=== PATIENT | female | born 1985 | race Caucasian/White ===

== ENCOUNTER 2017-08-09 08:59 | Emergency (ER) | payer OTHER ==
[~2017-08-09] VITALS: Ht 167.6 cm; Wt 70.8 kg
[2017-08-09] MEDS ORDERED: PRENATABS FA T1 EACH PO (09:38)
[2017-08-09] MEDS ORDERED: TRAZODONE HCL150 MG PO (09:38)
[2017-08-09] MEDS ORDERED: OMEPRAZOLE20 MG PO (09:38)
[2017-08-09] MEDS ORDERED: DITROPAN XL5 MG PO (09:38)
[2017-08-09] MEDS ORDERED: CYCLOBENZAPRINE10 MG PO (10:49)
[2017-08-09] MEDS ORDERED: NAPROSYN500 MG PO (10:49)
[2017-08-09] MEDS ORDERED: NORCO 5-325 TA1 EACH PO (10:49)
== END 2017-08-09 11:09 | disposition home or self-care (01) ==
LOC: ED 08:59
DX: M62.830 Muscle spasm of back (principal); F17.200 Nicotine dependence, unspecified, uncomplicated; Z88.5 Allergy status to narcotic agent; Z88.8 Allergy status to other drugs, medicaments and biological substances; Z79.899 Other long term (current) drug therapy; Z85.41 Personal history of malignant neoplasm of cervix uteri
CPT/HCPCS: 72100; 96372; 99283; J1885

== ENCOUNTER 2018-04-02 12:14 | Emergency (ER) | payer OTHER ==
[~2018-04-02] VITALS: Ht 167.6 cm; Wt 70.8 kg
--- OUTSIDE RECORDS SUMMARY | ~2018-04-02 | XMS | Clinical Summary ---
Demographics + + + | Address | [address] | | | [place] [address] | + + + | Home Phone | | + + + | Preferred Language | Unknown | + + + | Marital Status | Unknown | + + + | Catholic Affiliation | Unknown | + + + | Race | Unknown | + + + | Ethnic Group | Unknown | + + + Author + + + | Author | [facility] | + + + | Organization | [facility] | + + + | Address | Unknown | + + + | Phone | Unavailable | + + + Care Team Providers + +------+ + | Care Multi Site Leasing Consultant Name | Role | Phone | + +------+ + | Maryjane OlivaP | PP | | + +------+ + Source Comments [facility] is fully live on both [facility] and [facility] InPatient.[facility] Allergies Not on File Current Medications Not on file Active Problems Not on file Social History + +-------+ +--------+------+ | Tobacco Use | Types | Packs/Day | Years | Date | | | | | Used | | + +-------+ +--------+------+ | Never Assessed | | | | | + +-------+ +--------+------+ + + + | Sex Assigned at | Date Recorded | | | | + + + | Not on file | | + + + Plan of Treatment + + + + + | Health Maintenance | Due Date | Last Done | Comments | + + + + + | Influenza (Flu) | | | | | vaccination (#1) | 8 | | | + + + + + Results Not on filefrom Last 3 Months"
--- OUTSIDE RECORDS SUMMARY | ~2018-04-02 | XMS | Clinical Summary ---
Demographics + + + | Address | [address] | | | [place] [address] | + + + | Home Phone | | + + + | Preferred Language | Unknown | + + + | Marital Status | Unknown | + + + | Christian Affiliation | Unknown | + + + | Race | Unknown | + + + | Ethnic Group | Unknown | + + + Author + + + | Author | [facility] | + + + | Organization | [facility] | + + + | Address | Unknown | + + + | Phone | Unavailable | + + + Care Team Providers + +------+ + | Care Back End Engineer Name | Role | Phone | + +------+ + | Maryjane OlivaP | PP | | + +------+ + Source Comments [facility] is fully live on both [facility] Amb[facility] and [facility] InPatient.[facility] Allergies Not on File Current Medications Not [...]
--- OUTSIDE RECORDS SUMMARY | ~2018-04-02 | XMS | Clinical Summary ---
Demographics + + + | Address | [address] | | | [place] [address] | + + + | Home Phone | | + + + | Preferred Language | Unknown | + + + | Marital Status | Unknown | + + + | Sikhism Affiliation | Unknown | + + + | Race | Unknown | + + + | Ethnic Group | Unknown | + + + Author + + + | Author | [facility] | + + + | Organization | [facility] [employer] | + + + | Address | Unknown | + + + | Phone | Unavailable | + + + Care Team Providers + +------+ + | Care Car Washer Name | Role | Phone | + +------+ + PP | Unavailable | + +------+ + Allergies Not on File Current Medications Not [...] | + + + + + | Vaccine: | | | | | Dtap/Tdap/Td (1 - | 4 | | | | Tdap) | | | | + + + + + | Cervical Cancer | | | | | Screening (Pap) | 5 | | | + + + + + | Vaccine: Influenza | | | | | (#1) | 8 | | | + + + + + Results Not on filefrom Last 3 Months Insurance + +--------+ +------+-------+ + | Payer | Benefi | Subscriber | Type | Phone | Address | | | t Plan | ID | | | | | | / | | | | | | | Group | | | | | + +--------+ +------+-------+ + | MEDICAID | [employer] | [id number] | | | [address] | | | [place] | | | | [place] | | | [place] | | | | [address] | | | [employer] | | | | | + +--------+ +------+-------+ + + +--------+ +--------+ + + | Guarantor Name | Accoun | Relation to | Date | Phone | Billing Address | | | t Type | Patient | of | | | | | | | | | | + +--------+ +--------+ + + | MIRACLE HOLLEY | Person | Self [birth year] | Home: | [address] | | | al/Fam | | 1985 | [phone] | [place] [id number] | | | [place] | | | [phone] | | + +--------+ +--------+ + +"
--- OUTSIDE RECORDS SUMMARY | ~2018-04-02 | XMS | Clinical Summary ---
Demographics + + + | Address | [address] | | | [place] [address] | + + + | Home Phone | | + + + | Preferred Language | Unknown | + + + | Marital Status | Unknown | + + + | Restorationist Affiliation | Unknown | + + + | Race | Unknown | + + + | Ethnic Group | Unknown | + + + Author + + + | Author | [facility] | + + + | Organization | [facility] [employer] [facility] | + + + | Address | Unknown | + + + | Phone | Unavailable | + + + Care Team Providers + +------+ + | Care Valuer Name | Role | Phone | + [...] +------+-------+ + | MEDICAID | [employer] | [id number] | | | [address] | | | N | | | | [place] | | | [place] | | | | [phone] | | | [employer] | | | | | + +--------+ [...] | 1985 | [phone] | [place] [address] | | | [place] | | | [phone] | | + +--------+ +--------+ + +"
[~2018-04-02 12:14] MED LIST: CYCLOBENZAPRINE10 MG PO; DITROPAN XL5 MG PO; NAPROSYN500 MG PO; NORCO 5-325 TA1 EACH PO; OMEPRAZOLE20 MG PO; PRENATABS FA T1 EACH PO; TRAZODONE HCL150 MG PO
[2018-04-02] MEDS ORDERED: METHYLPREDNISOLO4 M1 PO (12:47)
[2018-04-02] MEDS ORDERED: ZITHROMAX250 MG PO (12:47)
[2018-04-02] MEDS ORDERED: VENTOLIN HFA18 GM INH (12:47)
== END 2018-04-02 13:02 | disposition home or self-care (01) ==
LOC: ED 12:14
DX: J40 Bronchitis, not specified as acute or chronic (principal); F17.200 Nicotine dependence, unspecified, uncomplicated; Z88.5 Allergy status to narcotic agent; Z88.8 Allergy status to other drugs, medicaments and biological substances; Z79.899 Other long term (current) drug therapy
CPT/HCPCS: 99283

== ENCOUNTER 2021-04-26 16:04 | Emergency (ER) | payer OTHER ==
[~2021-04-26] VITALS: Ht 167.6 cm; Wt 80.7 kg
[~2021-04-26 16:04] MED LIST changes: +METHYLPREDNISOLO4 M1 PO; +VENTOLIN HFA18 GM INH; +ZITHROMAX250 MG PO
[2021-04-26] MEDS ORDERED: ALEVE PM CAPLE1 EACH PO (18:06)
[2021-04-26] MEDS ORDERED: CYCLOBENZAPRINE10 MG PO (19:07)
== END 2021-04-26 19:41 | disposition home or self-care (01) ==
LOC: ED 16:04
DX: M54.50 Low back pain, unspecified (principal); F17.200 Nicotine dependence, unspecified, uncomplicated; Z88.5 Allergy status to narcotic agent; Z88.8 Allergy status to other drugs, medicaments and biological substances
CPT/HCPCS: 99283

== ENCOUNTER 2022-06-28 13:40 | Emergency (ER) | payer OTHER ==
[~2022-06-28] VITALS: Ht 167.6 cm; Wt 80.3 kg
[~2022-06-28 13:40] MED LIST changes: +ALEVE PM CAPLE1 EACH PO
[2022-06-28] MEDS ORDERED: AMOX TR-K CLV1 EAC1 PO (14:14)
== END 2022-06-28 14:24 | disposition home or self-care (01) ==
LOC: ED 13:40
DX: K11.20 Sialoadenitis, unspecified (principal); F17.200 Nicotine dependence, unspecified, uncomplicated; Z88.5 Allergy status to narcotic agent; Z88.8 Allergy status to other drugs, medicaments and biological substances
CPT/HCPCS: 99283

== ENCOUNTER 2024-11-02 11:00 | Emergency (ER) | payer OTHER ==
[~2024-11-02] VITALS: Ht 167.6 cm; Wt 94.7 kg
[~2024-11-02 11:00] MED LIST changes: +AMOX TR-K CLV1 EAC1 PO
[2024-11-02 12:44] VITALS: BP 148/84
--- NOTE | 2024-11-03 13:59 | EKG ---
[facility] [address] [facility] [place], [place] [address] Signed Normal sinus rhythm Normal ECG No previous ECGs available Confirmed by Michelle Stanton MD ([id number]) on 11/03/2024 1:59:39 PM Electronically Signed By: MICHELLE STANTON MD 11/03/24 1359 PATIENT NAME: MIRACLE ACEVEDO Electrocardiogram DATE OF : [birth year] PHYSICIAN: MICHELLE STANTON MD REPORT #: [id number] REPORT IS CONFIDENTIAL AND NOT TO BE RELEASED WITHOUT AUTHORIZATION
== END 2024-11-02 12:44 | disposition home or self-care (01) ==
LOC: ED 11:00
DX: J11.1 Influenza due to unidentified influenza virus with other respiratory manifestations (principal); F17.200 Nicotine dependence, unspecified, uncomplicated; Z88.5 Allergy status to narcotic agent; Z88.8 Allergy status to other drugs, medicaments and biological substances
CPT/HCPCS: 71045; 87651; 93005; 93010; 99284-25